=== PATIENT | male | born 1970 ===

== ENCOUNTER → 2021-01-29 08:54 | Outpatient (CLI) | payer OTHER, SELFPAY ==
[2021-01-29 19:29] LABS: Alanine Aminotransferase 32 IU/L (<50); Albumin 4.1 g/dL (3.5-5.0); Albumin Globulin Ratio 1.4 (1.0-2.8); Alkaline Phosphatase 70 U/L (38-126); Aspartate Aminotransferase 42 IU/L (17-59); BUN Creatinine Ratio 15.6 (6-22); Bilirubin Total 0.4 mg/dL (0.2-1.3); Blood Urea Nitrogen 15 mg/dL (9-20); Calcium 9.2 mg/dL (8.4-10.2); Carbon Dioxide 26 mmol/L (22-32); Chloride 107 mmol/L (98-107); Cholesterol 191 mg/dL (140-199); Estimated Glomerular Filt Rate > 60.0 mL/min (>60); Globulin 2.9 g/dL (1.7-4.1); Glucose 108 mg/dL (70-100); HDL Cholesterol 31 mg/dL (40-60); HEMOLYSIS < 15 (0-50); LDL Cholesterol Calculated 121 mg/dL (<100); Potassium 4.4 mmol/L (3.4-5.1); Sodium 139 mmol/L (137-145); Triglycerides 193 mg/dL (35-150)
== END ==
PROVIDERS: PCP Physician Assistant Medical; Visit Provider Physician Assistant Medical
DX: E78.49 Other hyperlipidemia (principal); H61.21 Impacted cerumen, right ear; R25.2 Cramp and spasm
CPT/HCPCS: 80053; 80061

== ENCOUNTER → 2022-07-12 10:27 | Outpatient (CLI) | payer OTHER, SELFPAY ==
[2022-07-12 19:18] LABS: Add Manual Diff / Slide Review NO; Basophils Absolute Auto 100 /uL (0-100); Basophils Percent Auto 0.7 % (0-2); Eosinophils Absolute Auto 100 /uL (0-450); Eosinophils Percent Auto 1.1 % (2-4); Hematocrit 48.7 % (41-53); Hemoglobin 16.4 g/dL (13.5-17.5); Lymphocytes Absolute Auto 2100 /uL (1100-4500); Lymphocytes Percent Auto 21.9 % (25-40); Mean Corpuscular HGB Conc 33.8 % (30-36); Mean Corpuscular Hemoglobin 30.2 PG (26-34); Mean Corpuscular Volume 89.5 fL (80-100); Monocytes Absolute Auto 500 /uL (0-900); Monocytes Percent Auto 5.6 % (3-14); Neutrophils Absolute Auto 6600 /uL (1500-7000); Neutrophils Percent Auto 70.7 % (50-75); Platelet Count 311 X10^3/uL (150-400); Red Blood Cell Count 5.44 X10^6/uL (4.5-5.9); Red Cell Distribution Width 13.2 % (11.6-14.8); White Blood Cell Count 9.4 X10^3/uL (4.5-11.0)
[2022-07-12 19:27] LABS: Alanine Aminotransferase 27 IU/L (<50); Albumin 4.4 g/dL (3.5-5.0); Albumin Globulin Ratio 1.4 (1.0-2.8); Alkaline Phosphatase 74 U/L (38-126); Aspartate Aminotransferase 53 IU/L (17-59); BUN Creatinine Ratio 16.8 (6-22); Bilirubin Total 0.8 mg/dL (0.2-1.3); Blood Urea Nitrogen 17 mg/dL (9-20); Calcium 8.9 mg/dL (8.4-10.2); Carbon Dioxide 23 mmol/L (22-32); Chloride 105 mmol/L (98-107); Cholesterol 215 mg/dL (140-199); Estimated Glomerular Filt Rate > 60 mL/min (>60); Globulin 3.2 g/dL (1.7-4.1); Glucose 101 mg/dL (70-100); HDL Cholesterol 34 mg/dL (40-60); HEMOLYSIS 21 (0-50); LDL Cholesterol Calculated 146 mg/dL (<100); Potassium 3.9 mmol/L (3.4-5.1); Sodium 138 mmol/L (137-145); Total Protein 7.6 g/dL (6.3-8.2); Triglycerides 174 mg/dL (35-150)
[2022-07-12 19:29] LABS: Hemoglobin A1C% w Est Avg Glu 5.3 % (4.0-6.0)
[2022-07-12 19:45] LABS: Vitamin D 25 Hydroxy (D3) 26.9 ng/mL (30.0-100.0)
== END ==
PROVIDERS: PCP Physician Assistant; Visit Provider Physician Assistant
DX: E55.9 Vitamin D deficiency, unspecified (principal); E78.49 Other hyperlipidemia; R03.0 Elevated blood-pressure reading, without diagnosis of hypertension; R63.5 Abnormal weight gain; Z82.49 Family history of ischemic heart disease and other diseases of the circulatory system
CPT/HCPCS: 80053; 80061; 82306; 83036; 85025

== ENCOUNTER → 2023-03-31 10:39 | Outpatient (CLI) | payer OTHER, SELFPAY ==
[2023-03-31 19:47] LABS: Cholesterol 101 mg/dL (140-199); HDL Cholesterol 37 mg/dL (40-60); LDL Cholesterol Calculated 29 mg/dL (<100); Triglycerides 177 mg/dL (35-150)
== END ==
PROVIDERS: PCP Physician Assistant; Visit Provider Internal Medicine Cardiovascular Disease
DX: I25.10 Atherosclerotic heart disease of native coronary artery without angina pectoris (principal)
CPT/HCPCS: 80061

== ENCOUNTER → 2025-02-21 08:57 | Outpatient (CLI) | payer OTHER, SELFPAY ==
--- NOTE | 2025-02-21 08:58 | DI.NM.S_ITS ---
PROCEDURE: NM ARABELLA PERF SPECT REST & STR Rest and exercise myocardial perfusion SPECT with gated imaging and ejection fraction RADIOPHARMACEUTICAL: 12.3 mCi Tc-99m sestamibi IV at rest and 26.1 mCi Tc-99m sestamibi IV at peak exercise. A one day-protocol was performed. 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 SPECT images were obtained. SPECT myocardial perfusion images were displayed in short axis, horizontal long axis, and vertical long axis views. Gated images were reviewed using true[employer] software. COMPARISON: None. CARDIAC STRESS: A standard Kush treadmill exercise tolerance test was performed by the patient under the supervision of an attending staff. The patient exercised for 9 minutes and 2 seconds; functional aerobic impairment (SERVANDO) is +4%. Hemodynamic data: There is normal blood pressure and heart rate response to exercise stress. Patient achieved 90% of maximum predicted heart rate at peak exercise. Symptoms: Patient denied chest pain during exercise. EKG: No diagnostic EKG changes of ischemia; rare PVCs present. FINDINGS: Raw data: There is good myocardial labeling by radiotracer. No significant motion artifacts. Kmnb-cv-tirlc ratio is 0.27 (normal is less than 0.38 for sestamibi tracer, and less than 0.50 for thallium tracer). Left ventricle function: Gated images demonstrate normal left ventricle wall thickening. No segmental wall motion abnormality. No transient ischemic dilation; TID is 0.58 (normal less than 1.3). The left ventricle resting end-diastolic volume is 86 mL. Left ventricle stress ejection fraction is 73%; normal values are above 45%. Myocardial perfusion: There is a mildly intense inferior wall defect at rest that resolves with stress, suggesting diaphragmatic attenuation artifact. No ischemia or infarction noted. IMPRESSION: Low risk, normal treadmill nuclear stress test from inducible ischemia standpoint. 1) There is a mildly intense inferior wall defect at rest that resolves with stress, suggesting diaphragmatic attenuation artifact. No ischemia or infarction noted. 2) Normal left ventricular size, wall motion, and systolic function (EF post stress 73%). 3) No diagnostic ST changes during exercise or recovery. 4) No angina during the study. 5) Fair exercise tolerance (9.7METs, SERVANDO +4%). Target heart rate reached. Appropriate BP response to exercise. 6) No prior nuclear stress test available for comparison. Dictated by: Karl Waldron MD on 02/22/2025 at 14:34 Approved by: Karl Waldron MD on 02/22/2025 at 14:37
== END ==
PROVIDERS: PCP Family Medicine; Referring Provider Internal Medicine Cardiovascular Disease; Visit Provider Internal Medicine Cardiovascular Disease
DX: I25.10 Atherosclerotic heart disease of native coronary artery without angina pectoris (principal); Z82.49 Family history of ischemic heart disease and other diseases of the circulatory system
CPT/HCPCS: 78452; 93017; A9502